=== PATIENT | female | born 2005 | race Asian ===

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

== ENCOUNTER 2023-01-17 13:40 | Outpatient (CLI) | payer OTHER | END 2023-01-17 19:00 | disposition home or self-care (01) | LOC: RAD 13:40 | PROVIDERS: ATTEND Nurse Practitioner Family | DX: M54.59 Other low back pain (principal) ==

== ENCOUNTER 2023-01-22 15:01 | Outpatient (CLI) | payer OTHER | END 2023-01-22 20:45 | disposition home or self-care (01) | LOC: US 15:01 | PROVIDERS: ATTEND Nurse Practitioner Family | DX: E05.90 Thyrotoxicosis, unspecified without thyrotoxic crisis or storm (principal) ==

== ENCOUNTER 2023-02-23 09:30 | Outpatient (CLI) | payer OTHER | END 2023-02-23 18:54 | disposition home or self-care (01) | LOC: US 09:30 | PROVIDERS: ATTEND Family Medicine | DX: B27.00 Gammaherpesviral mononucleosis without complication (principal) ==

== ENCOUNTER 2023-05-24 15:43 | Outpatient (CLI) | payer OTHER | END 2023-05-24 18:30 | disposition home or self-care (01) | LOC: RESP 15:43 | PROVIDERS: ATTEND Nurse Practitioner Family | DX: R00.2 Palpitations (principal) | CPT/HCPCS: 93005 ==